=== PATIENT | female | born 1945 ===

== ENCOUNTER 2018-08-02 12:27 | Emergency (ER) | payer MEDICARE ==
[2018-08-02 12:27] VITALS: BMI 29.2
[2018-08-02] MEDS ORDERED: Naproxen 500 MG TAB PO ONE (13:16)
--- NOTE | 2018-08-02 13:24 | ED PDOC ---
HPI: Back Time Seen by Provider: 08/02/18 12:40 Chief Complaint (Nursing): Back Pain Chief Complaint (Provider): Back Pain History Per: Patient History/Exam Limitations: no limitations Onset/Duration Of Symptoms: Days (x2 weeks) Additional Complaint(s): Dana García, a 72 year old female with past medical history of asthma, presents to the ED with low back pain onset x2 weeks. Patient states she was moving furniture at onset and has had lower back pain since with intermittent radiation in both of her legs for the past 2 weeks. She reports a history of surgery to her lumbar spine in which she had screws placed in her back about 5 years ago. Patient states she has been taking medical marijuana for pain and denies fever/ chills, saddle anesthesia, incontinence, urinary symptoms, numb ness/weakness, IVDA, abdominal pain, headache/dizziness, nausea/vomiting, or chest pain. No further medical complaints. PMD: Kg Past Medical History Reviewed: Historical Data, Nursing Documentation, Vital Signs Vital Signs: Last Vital Signs Temp 98 F 08/02/18 12:35 Pulse 91 H 08/02/18 12:35 Resp 16 08/02/18 12:35 BP 155/98 H 08/02/18 12:35 Pulse Ox 99 08/02/18 12:35 - Medical History PMH: Asthma, COPD, Hypothyroidism, Pneumonia (2013) - Surgical History Surgical History: Appendectomy, Back Surgery - Family History Family History: States: Unknown Family Hx - Home Medications Home Medications: Ambulatory Orders Medication Instructions Recorded Albuterol/Ipratropium [Combivent 1 puff IH Q6H PRN 10/02/16 Respimat] Fluticasone/Salmeterol 250/50 1 puff IH Q12 10/02/16 [Advair Diskus 250/50] Levothyroxine [Synthroid] 75 mcg PO DAILY 10/02/16 Meloxicam [Mobic] 15 mg PO DAILY #10 tab 08/02/18 Methocarbamol [Robaxin] 750 mg PO BID PRN #12 tab 08/02/18 - Allergies Allergies/Adverse Reactions: Allergies Allergy/AdvReac Type Severity Reaction Status Date / Time Penicillins Allergy RASH Verified 08/02/18 12:34 phenobarbital Allergy RASH Verified 08/02/18 12:34 Review of Systems ROS Statement: Except As Marked, All Systems Reviewed And Found Negative Constitutional: Negative for: Fever Respiratory: Negative for: Other (trouble breathing) Gastrointestinal: Negative for: Nausea, Vomiting Genitourinary Female: Negative for: Dysuria Musculoskeletal: Positive for: Back Pain Physical Exam - Reviewed Nursing Documentation Reviewed: Yes Vital Signs Reviewed: Yes - Physical Exam Comments: GENERAL APPEARANCE: Patient is awake, alert, oriented x 3, in no acute distress. Resting comfortably, ambulatory in ED with a steady gait. SKIN: Warm, dry; (-) cyanosis. EYES: (-) conjunctival pallor. ENMT: Mucous membranes moist. Airway patent, (-) stridor. NECK: Supple, FROM CHEST AND RESPIRATORY: (-) rales, (-) rhonchi, (-) wheezes; breath sounds equal bilaterally. Respirations even and nonlabored. HEART AND CARDIOVASCULAR: (-) irregularity ABDOMEN AND GI: Soft; (-) tenderness (-) guarding (-) distention (-) palpable mass (-) CVA tenderness. BACK: (+) midline lumbar tenderness, (-) deformity, (-) sciatic notch tenderness (+) well healed vertically oriented surgical scar over lumbar spine EXTREMITIES: (-) deformity. Distal pulses good bilaterally. NEURO AND PSYCH: Mental status as above. Intact sensation bilaterally; normal strength in extension of the knees, plantar and dorsiflexion of the toes. Speech: clear. (-) facial asymmetry (-) aphasia. - ECG O2 Sat by Pulse Oximetry: 99 (RA) Pulse Ox Interpretation: Normal Medical Decision Making Medical Decision Making: Time: 12:40 Initial Impression: acute on chronic lower back pain Initial Plan: --Xray lumbar spine --Naproxen 500 mg PO --Diazepam 5 mg PO (Not driving home) --Zofran 4 mg Po --Re-evaluation 1505 XR reviewed, radiology report follows Date of service: 08/02/2018 PROCEDURE: Radiographs of the Lumbar Spine. HISTORY: back pain s/p moving furniture, hx of spinal surg COMPARISON: No prior. FINDINGS: BONES: Normal alignment. No listhesis. No fracture. No evidence of orthopedic hardware failure. Satisfactory position of orthopedic hardware including interpedicular screws. DISC SPACES: Disc degenerative changes with vacuum disc phenomenon lumbosacral junction. OTHER FINDINGS: None. IMPRESSION: No significant or acute findings to account for/ related to the clinical pre sentation. Repeat BP: 143/86 Repeat HR: 82 On re-evaluation, patient reports improvement of symptoms. On exam, patient remains AAOx3, in no acute distress. Lungs clear to auscultation, cardiac RRR, r epeat neuro exam shows no focal findings. Vitals stable. Lab/Diagnostic results d/w the patient in great detail. Diagnosis of acute on chronic back pain d/w the patient. Based on history, exam and diagnostic results, plan will be for outpatient follow up with PMD/ortho. Patient instructed to follow-up with pmd / referral provided / the clinic in 1- 2 days without fail. Advised to take medication as prescribed. Return to the emergency room at any time for any new or worsening symptoms. Patient states she fully agrees with and understands discharge instructions. States that she agrees with the plan and disposition. Verbalized and repeated discharge instructions and plan. I have given the patient opportunity to ask any additional questions. Scribe Attestation: Documented by Meaghan Winn, acting as a scribe for Angella Luna PA-C. Provider Scribe Attestation: All medical record entries made by the Scribe were at my direction and personally dictated by me. I have reviewed the chart and agree that the record accurately reflects my personal performance of the history, physical exam, medical decision making, and the department course for this patient. I have also personally directed, reviewed, and agree with the discharge instructions and disposition. Disposition - Clinical Impression Clinical Impression: Chronic back pain, Musculoskeletal back pain - Patient ED Disposition Is Patient to be Admitted: No Counseled Patient/Family Regarding: Studies Performed, Diagnosis, Need For Followup, Rx Given - Disposition Referrals: Juan Saul MD [Staff Provider] - Salma Gillette MD [Staff Provider] - Disposition: Routine/Home Disposition Time: 15:15 Condition: IMPROVED Additional Instructions: The emergency medical care you received today was directed at your acute symptoms. If you were prescribed any medication, please fill it and take as directed. It may take several days for your symptoms to resolve. Return to the Emergency Department if your symptoms worsen, do not improve, or if you have any other problems. Please contact your doctor in 2 days for re-evaluation and follow up / or call one of the physicians/clinics you have been referred to that are listed on the Patient Visit Information form that is included in your discharge packet. Bring any paperwork you were given at discharge with you along with any medications you are taking to your follow up visit. Our treatment cannot replace ongoing medical care by a primary care provider (PCP) outside of the emergency department. Prescriptions: Meloxicam [Mobic] 15 mg PO DAILY #10 tab Methocarbamol [Robaxin] 750 mg PO BID PRN #12 tab PRN Reason: Muscle Spasm Instructions: Low Back Pain in Adults, Muscle and Bone Pain (DC), Lumbar Muscle Strain Forms: [employer] (Divehi) Print Language: TAJIK - POA Present On Arrival: None
--- NOTE | 2018-08-02 14:48 | RAD ---
Date of service: 08/02/2018 PROCEDURE: Radiographs of the Lumbar Spine. HISTORY: back pain s/p moving furniture, hx of spinal surg COMPARISON: No prior. FINDINGS: BONES: Normal alignment. No listhesis. No fracture. No evidence of orthopedic hardware failure. Satisfactory position of orthopedic hardware including interpedicular screws. DISC SPACES: Disc degenerative changes with vacuum disc phenomenon lumbosacral junction. OTHER FINDINGS: None. IMPRESSION: No significant or acute findings to account for/ related to the clinical presentation.
[2018-08-02] MEDS ORDERED: Naproxen 500 MG TAB PO SCH (21:00)
[2018-08-03 00:11] VITALS: BP 143/86; PULSE 82; RESP 16; TEMP 98.1; O2SAT 99
== END 2018-08-02 15:20 | disposition home or self-care (01) ==
LOC: H.ER 12:27
DX: M54.9 Dorsalgia, unspecified (principal)

== ENCOUNTER 2018-09-16 22:34 | Emergency (ER) | payer MEDICARE ==
[2018-09-16 22:35] VITALS: BMI 29.2
[2018-09-16 22:41] VITALS: BP 156/92; PULSE 88; RESP 16; TEMP 98.5; O2SAT 100
== END 2018-09-17 00:56 | disposition left against medical advice (07) ==
LOC: H.ER 22:34
DX: Z02.89 Encounter for other administrative examinations (principal)